=== PATIENT | male | born 1985 | race American Indian/Alaskan Native ===

== ENCOUNTER 2018-03-31 19:17 | Emergency (ER) | payer OTHER ==
[2018-03-31] MEDS ORDERED: FLEXERIL ONE (23:17)
[2018-03-31] MEDS ORDERED: ULTRAM ONE (23:17)
[2018-03-31] MEDS ORDERED: ULTRAM PO ONE (23:22)
[2018-03-31] MEDS ORDERED: FLEXERIL PO ONE (23:22)
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
[2018-04-01 00:47] VITALS: BP 128/80
== END 2018-04-01 00:51 | disposition home or self-care (01) ==
LOC: ED 19:17
DX: R07.89 Other chest pain (principal); F20.89 Other schizophrenia; Z87.891 Personal history of nicotine dependence; V89.2XXA Person injured in unspecified motor-vehicle accident, traffic, initial encounter; W22.10XA Striking against or struck by unspecified automobile airbag, initial encounter; Y93.89 Activity, other specified; Y92.89 Other specified places as the place of occurrence of the external cause; Y99.8 Other external cause status
CPT/HCPCS: 71046; 99283